=== PATIENT | female | born 1950 | race Caucasian/White ===

== ENCOUNTER 2020-05-25 11:06 | Emergency (ER) | payer MEDICARE, MEDICAID ==
--- NOTE | 2020-05-25 11:26 | EDM.PDOC ---
ED HPI GENERAL MEDICAL PROBLEM - General Chief Complaint: Respiratory Problem Stated Complaint: COVID POSITIVE Time Seen by Provider: 05/25/20 11:10 Source of Information: Reports: Patient, RN Notes Reviewed History Limitations: Reports: No Limitations - History of Present Illness INITIAL COMMENTS - FREE TEXT/NARRATIVE: Chelsey is an alert 70 year old female staying at [facility]. She was having SOB, is COVID19 +, has dialysis. Her primary provider Dr. Salas arranged for her transfer via ambulance to [facility] COVID unit directed admit. Per EMS they did not have transfer paper work and brought her to our emergency room as we are the closest facility. EMS dropped off patient, left emergency room. [facility] contacted, patient acceptance per Dr. Sifuentes. Patient resting on ER stretcher, O2 at 2L per nasal cannula, vital signs stable. - Related Data Allergies Allergy/AdvReac Type Severity Reaction Status Date / Time No Known Allergies Allergy Verified 08/31/14 10:23 Home Meds: Home Meds Insulin Aspart [NovoLOG] 0 - 5 units SUBCUT TID 06/22/13 [History] Insulin Detemir [Levemir] 5 units SUBCUT BEDTIME 06/22/13 [History] Aspirin [Ecotrin EC] 81 mg PO DAILY 08/02/14 [History] Fluticasone/Salmeterol [Advair 250-50] 1 puff IH BID 08/02/14 [History] Multivitamin [Multi-Vitamin Daily] 1 each PO DAILY 08/02/14 [History] Sevelamer Carbonate [Renvela] 800 mg PO TIDMEALS 08/02/14 [History] atorvaSTATin Calcium [Atorvastatin Calcium] 20 mg PO DAILY 08/31/14 [History] Ondansetron [Zofran ODT] 4 mg PO Q4H PRN 09/10/14 [History] oxyCODONE 5 units PO Q4H PRN 09/10/14 [History] polyethylene glycoL 3350 [MiraLAX] 17 gm PO DAILY 09/10/14 [History] Past Medical History Respiratory History: Reports: Other (See Below) Other Respiratory History: know covid - Past Surgical History Female Surgical History: Reports: Other (See Below) Other Female Surgeries/Procedures: renal failure with dialysis ED ROS GENERAL - Review of Systems Review Of Systems: See Below Constitutional: Reports: Malaise, Weakness HEENT: Reports: No Symptoms Respiratory: Reports: Shortness of Breath, Other (Use of oxygen, COVID19+) Cardiovascular: Reports: No Symptoms Endocrine: Reports: No Symptoms GI/Abdominal: Reports: No Symptoms : Reports: No Symptoms Musculoskeletal: Reports: Other (weakness) Skin: Reports: No Symptoms Neurological: Reports: No Symptoms Psychiatric: Reports: No Symptoms Hematologic/Lymphatic: Reports: No Symptoms Immunologic: Reports: No Symptoms ED EXAM, GENERAL - Physical Exam Exam: See Below Exam Limited By: No Limitations General Appearance: Alert, Mild Distress (Use of oxygen to maintains sats above 92%) Head: Atraumatic, Normocephalic Respiratory/Chest: Chest Non-Tender, Decreased Breath Sounds, Accessory Muscle Use. No: Rales, Rhonchi, Wheezing, Retractions Skin Exam: Warm, Dry, Intact, Normal Color, No Rash Course - Vital Signs Last Recorded V/S: Last Vital Signs Temp 37.1 C 05/25/20 11:46 Pulse 95 05/25/20 11:46 Resp 14 05/25/20 11:46 BP 139/70 05/25/20 11:46 Pulse Ox 99 05/25/20 11:46 - Orders/Labs/Meds Labs: Laboratory Tests 05/25/20 Range/Units 12:49 POC Glucose 80 (74-106) MG/DL - Re-Assessments/Exams Free Text/Narrative Re-Assessment/Exam: 05/25/20 12:51 EMS arrives to transport patient to [facility]. Patient stable Blood glucose 80, orange juice and applesauce provided. Patient transfer to [facility]. Departure - Departure Time of Disposition: 11:11 Disposition: DC/Tfer to Acute Hospital 02 Condition: Fair Clinical Impression: Coronavirus infection, CKD (chronic kidney disease) stage 5, GFR less than 15 ml/min - Discharge Information Referrals: PCP,None [Primary Care Provider] - Forms: ED Department Discharge Sepsis Event Note (ED) - Focused Exam Vital Signs: Vital Signs Temp Pulse Resp BP Pulse Ox 05/25/20 11:46 37.1 C 95 14 139/70 99 - Assessment/Plan Assessment:: Coronavirus infection, CKD (chronic kidney disease) stage 5, GFR less than 15 ml/min Transfer to [facility] COVID unit arranged per Dr. Salas, paperwork not completed. [facility] contacted, Dr. Sifuentes accepts patient for transfer. Plan: Transfer to [facility] COVID unit arranged per Dr. Salas, paperwork not completed. [facility] contacted, Dr. Sifuentes accepts patient for transfer.
[2020-05-25 11:47] VITALS: BP 139/70; PULSE 95
== END 2020-05-25 13:00 ==
LOC: JP.ED 11:06
DX: U07.1 COVID-19 (principal); N18.5 Chronic kidney disease, stage 5; Z99.2 Dependence on renal dialysis
CPT/HCPCS: 82962; 99285

== ENCOUNTER 2021-04-19 23:35 | Emergency (ER) | payer MEDICARE, MEDICAID ==
[2021-04-19] MEDS ORDERED: Lidocaine 1% with EPINEPHrine 1:100,000 50 ML MDV INFILT STA (23:51)
[2021-04-19 23:59] VITALS: BP 110/69; PULSE 98
--- NOTE | 2021-04-20 01:04 | EDM.PDOC ---
ED HPI GENERAL MEDICAL PROBLEM - General Chief Complaint: Upper Extremity Injury/Pain Stated Complaint: FELL Time Seen by Provider: 04/19/21 23:50 Source of Information: Reports: Patient, EMS, [facility] Records History Limitations: Reports: Altered Mental Status, Other (Patient is having an extremely difficult time localizing her pain for us) - History of Present Illness INITIAL COMMENTS - FREE TEXT/NARRATIVE: 71-year-old female, nonambulatory, fell out of her chair. She has a very shallow abrasion on her left knee, complaining of bilateral hand pain, and has a bleeding lesion on her right forehead. No loss of consciousness but she is very anxious and agitated. There is a pressure dressing on her forehead. Onset: Sudden Duration: Hour(s): (Fell within the last hour) Location: Reports: Head, Upper Extremity, Left, Upper Extremity, Right, Lower Extremity, Left Quality: Reports: Sharp, Stabbing Associated Symptoms: Reports: Confusion, Other (Her chief complaint seems to be left hand pain and muscle spasm in the hand). Denies: Cough, Headaches (Denies a headache), Shortness of Breath Bilateral Hand Pain Score (Numeric/FACES): 10 - Related Data Allergies Allergy/AdvReac Type Severity Reaction Status Date / Time No Known Allergies Allergy Verified 04/19/21 23:46 Home Meds: Home Meds Insulin Aspart [NovoLOG] 2 units SUBCUT TID 06/22/13 [History] Insulin Detemir [Levemir] 8 units SUBCUT BEDTIME 06/22/13 [History] Aspirin [Ecotrin EC] 81 mg PO DAILY 08/02/14 [History] Fluticasone/Salmeterol [Advair 250-50] 1 puff IH BID 08/02/14 [History] Sevelamer Carbonate [Renvela] 800 mg PO TIDMEALS 08/02/14 [History] Amino Acids [Amino Acid] 1 tab PO ASDIRECTED 04/19/21 [History] Cetirizine [ZyrTEC] 1 tab PO DAILY 04/19/21 [History] Cholecalciferol (Vitamin D3) [Vitamin D3] 5,000 intunit PO DAILY 04/19/21 [History] Famotidine 1 tab PO DAILY 04/19/21 [History] Lidocaine/Prilocaine [EMLA Crm] 1 dose TOP ASDIRECTED 04/19/21 [History] Simvastatin [Zocor] 1 tab PO DAILY 04/19/21 [History] Triamcinolone Acetonide [Nasacort] 2 spray IN DAILY PRN 04/19/21 [History] Past Medical History HEENT History: Reports: Macular Degeneration Cardiovascular History: Reports: CAD, High Cholesterol Respiratory History: Reports: COPD, Other (See Below) Other Respiratory History: oxygen 2L at night Gastrointestinal History: Reports: GERD, Other (See Below) Other Gastrointestinal History: gastoparesis Genitourinary History: Reports: Acute Renal Failure, Chronic Renal Insuffiency, Dialysis Musculoskeletal History: Reports: Arthritis Endocrine/Metabolic History: Reports: Diabetes, Type II Hematologic History: Reports: Anemia - Infectious Disease History Infectious Disease History: Reports: Measles, Novel Coronavirus - Past Surgical History GI Surgical History: Reports: Colon, Other (See Below) Female Surgical History: Reports: Other (See Below) Other Female Surgeries/Procedures: renal failure with dialysis Social & Family History - Family History Family Medical History: No Pertinent Family History - Tobacco Use Tobacco Use Status *Q: Never Tobacco User - Caffeine Use Caffeine Use: Reports: None - Recreational Drug Use Recreational Drug Use: No Review of Systems - Review of Systems Review Of Systems: See Below Constitutional: Denies: Fever Eyes: Denies: Vision Change Mouth/Throat: Reports: No Symptoms Respiratory: Reports: No Symptoms Cardiovascular: Reports: No Symptoms Skin: Reports: Bruising (Bruising and hematomas are forming on her forehead and she has a bleeding lesion in her right forehead. No significant bruising of the upper extremities. She has a dialysis site with a pressure dressing on the left upper arm.) Neurological: Reports: Confusion. Denies: Headache Psychiatric: Reports: Anxiety ED EXAM, GENERAL - Physical Exam Exam: See Below Exam Limited By: No Limitations General Appearance: Alert, Anxious, Mild Distress, Other (Patient having trouble sitting still because of discomfort in her hands) Eye Exam: Bilateral Eye: Other (Chronically dilated left pupil) Throat/Mouth: Other (1.5 cm transverse laceration on the right forehead) Head: Other (Patient is a 2 cm laceration to the right forehead) Neck: Non-Tender Respiratory/Chest: Lungs Clear Cardiovascular: Regular Rate, Rhythm GI/Abdominal: Soft, Non-Tender Extremities: Other (There is a pressure dressing around the upper arm on the left side over her dialysis site. She is complaining of severe pain in her left hand although there is no objective signs of injury. She has some ulnar deviation of the MP joints of the right hand.) Neurological: Alert, No Motor/Sensory Deficits Psychiatric: Anxious Skin Exam: Warm, Dry Course - Vital Signs Last Recorded V/S: Last Vital Signs Temp 96.3 F L 04/19/21 23:58 Pulse 98 04/19/21 23:58 Resp 20 04/19/21 23:58 BP 110/69 04/19/21 23:58 Pulse Ox 95 04/19/21 23:58 - Orders/Labs/Meds Meds: Medications Discontinued Medications Generic Name Dose Route Start Last Admin Trade Name Angela PRN Reason Stop Dose Admin Acetaminophen 650 mg 04/20/21 01:37 04/20/21 01:40 Acetaminophen 325 Mg Tab PO 04/20/21 01:38 650 mg NOW ONE Administration Lidocaine/Epinephrine 30 ml 04/19/21 23:51 04/19/21 23:57 Lidocaine 1% With Epinephrine 1:100,000 50 Ml Mdv INFILT 04/19/21 23:52 30 ml NOW STA Administration - Re-Assessments/Exams Free Text/Narrative Re-Assessment/Exam: 04/20/21 01:39 IMPRESSION: 1. Small amount of post-traumatic bilateral inferior frontal sulcal subarachnoid hemorrhage, seen best in series 5 images 13, 15, 16, 18 and 21. 2. Prominent right frontal subgaleal soft tissue swelling without associated fracture. 3. Moderate microangiopathic changes and diffuse parenchymal volume loss. 04/20/21 01:56 The laceration on the forehead was anesthetized with 1% lidocaine with epinephrine and four 4-0 Ethilon sutures were used to close the wound. A pressure dressing was reapplied and these can be removed in 5 days. X-ray of the left hand was obtained which showed no fracture. She did calm down. CT scan of the head was done and showed the above findings. These will be relayed to Dr. Salas in the morning, a follow-up CT scan can be done as an outpatient in the next day or two. Departure - Departure Time of Disposition: 02:07 Disposition: DC/Tfer to [facility] Clinical Impression: Forehead laceration Qualifiers: Encounter type: initial encounter Qualified Code(s): S01.81XA - Laceration without foreign body of other part of head, initial encounter Scalp contusion Qualifiers: Encounter type: initial encounter Qualified Code(s): S00.03XA - Contusion of scalp, initial encounter Sprain of hand, left Qualifiers: Encounter type: initial encounter Qualified Code(s): S63.92XA - Sprain of unspecified part of left wrist and hand, initial encounter Abrasion of knee, left Qualifiers: Encounter type: initial encounter Qualified Code(s): S80.212A - Abrasion, left knee, initial encounter Subarachnoid hemorrhage following injury Qualifiers: Encounter type: initial encounter Loss of consciousness presence/duration: without LOC Qualified Code(s): S06.6X0A - Traumatic subarachnoid hemorrhage without loss of consciousness, initial encounter - Discharge Information Instructions: Laceration Care, Adult, [id number] Referrals: Enrico Salas Sr, MD [Primary Care Provider] - Forms: ED Department Discharge Care Plan Goals: Keep pressure dressings on the laceration on the forehead for the next 12 hours, ice to sore areas may be helpful. The CT findings and treatment will be discussed with her primary provider Dr. Salas in the morning. Follow-up will be arranged by him. Sepsis Event Note (ED) - Evaluation Sepsis Screening Result: No Definite Risk - Focused Exam Vital Signs: Vital Signs Temp Pulse Resp BP Pulse Ox 04/19/21 23:58 96.3 F L 98 20 110/69 95
--- NOTE | 2021-04-20 01:31 | CRLCT ---
For Patients: As a result of the Cures Act, medical imaging exams and procedure reports are released immediately into your electronic medical record. You may view this report before your referring provider. If you have questions, please contact your health care provider. CT HEAD DATE: 04/20/2021 CLINICAL HISTORY: Patient with fall. TECHNIQUE: Standard CT scanning of the head was performed. COMPARISON: None. FINDINGS: There is right frontal subgaleal soft tissue swelling. There is a small amount of post-traumatic bilateral inferior frontal sulcal subarachnoid hemorrhage, seen best in series 5 images 13, 15, 16, 18 and 21. There is no territorial infarction. There are moderate microangiopathic changes. There is diffuse parenchymal volume loss. There is no mass effect or midline shift. The calvarium is unremarkable. The orbits are unremarkable. The paranasal sinuses are unremarkable. The mastoid air cells are unremarkable. IMPRESSION: 1. Small amount of post-traumatic bilateral inferior frontal sulcal subarachnoid hemorrhage, seen best in series 5 images 13, 15, 16, 18 and 21. 2. Prominent right frontal subgaleal soft tissue swelling without associated fracture. 3. Moderate microangiopathic changes and diffuse parenchymal volume loss. Findings were discussed with Dr. Jackson at 1:30 AM. Please note that all CT scans at this facility use dose modulation, iterative reconstruction, and/or weight-based dosing when appropriate to reduce radiation dose to as low as reasonably achievable. Dictated by: Prasanth Hopkins MD @ 04/20/2021 01:30:28 (Electronically Signed)
[2021-04-20] MEDS ORDERED: Acetaminophen 325 MG Tab PO ONE (01:37)
--- NOTE | 2021-04-20 03:35 | CRLCR ---
For Patients: As a result of the Century Cures Act, medical imaging exams and procedure reports are released immediately into your electronic medical record. You may view this report before your referring provider. If you have questions, please contact your health care provider. Indication: Fall Technique: One-view Comparison: None Findings: Only a single view of the left hand could be obtained secondary to patient pain. There is diffuse osteopenia without definite evidence of acute fracture. Osteoarthritis is present at the 2nd through 5th distal interphalangeal joints as well as likely the 5th proximal interphalangeal joint. Osteoarthritis at the interphalangeal joint of the thumb. Lateral carpal osteoarthritis. No gross dislocation on this single view. Atherosclerotic calcification with likely chondrocalcinosis at the level of the wrist. Dictated by Jame Moss MD @ 04/20/2021 3:33:29 AM (Electronically Signed)
== END 2021-04-20 02:16 ==
LOC: JP.ED 23:35
DX: S06.6X0A Traumatic subarachnoid hemorrhage without loss of consciousness, initial encounter (principal); S01.81XA Laceration without foreign body of other part of head, initial encounter; S63.92XA Sprain of unspecified part of left wrist and hand, initial encounter; S80.212A Abrasion, left knee, initial encounter; I10 Essential (primary) hypertension; I25.10 Atherosclerotic heart disease of native coronary artery without angina pectoris; J44.9 Chronic obstructive pulmonary disease, unspecified; E11.9 Type 2 diabetes mellitus without complications; Z79.4 Long term (current) use of insulin; Z79.899 Other long term (current) drug therapy; Z86.16 Personal history of COVID-19; W07.XXXA Fall from chair, initial encounter
CPT/HCPCS: 12013; 70450; 73120; 99284; A9270

== ENCOUNTER 2021-05-16 07:34 | Emergency (ER) | payer MEDICARE, MEDICAID ==
--- NOTE | 2021-05-16 08:10 | EDM.PDOC ---
ED HPI GENERAL MEDICAL PROBLEM - General Chief Complaint: General Stated Complaint: FALL Time Seen by Provider: 05/16/21 08:03 Source of Information: Reports: Patient, Provider, RN Notes Reviewed History Limitations: Reports: Physical Impairment - History of Present Illness INITIAL COMMENTS - FREE TEXT/NARRATIVE: 71-year-old female presents emergency department today via EMS services she is a resident of a assisted recently had a fall with a head injury producing a subarachnoid hemorrhage this is approximately couple weeks ago repeat CT scan showed no change in size with some resolution. She was found this morning at the assisted on the ground unwitnessed event had 1 episode of emesis she has been in decline memory issues so difficult to obtain history from her. I did discuss the case with her primary care provider he has ordered an MRI for this this morning. - Related Data Allergies Allergy/AdvReac Type Severity Reaction Status Date / Time No Known Allergies Allergy Verified 05/16/21 08:08 Home Meds: Home Meds Insulin Aspart [NovoLOG] 2 units SUBCUT TID 06/22/13 [History] Insulin Detemir [Levemir] 8 units SUBCUT BEDTIME 06/22/13 [History] Aspirin [Ecotrin EC] 81 mg PO DAILY 08/02/14 [History] Fluticasone/Salmeterol [Advair 250-50] 1 puff IH BID 08/02/14 [History] Cetirizine [ZyrTEC] 1 tab PO DAILY 04/19/21 [History] Cholecalciferol (Vitamin D3) [Vitamin D3] 5,000 intunit PO DAILY 04/19/21 [History] Famotidine 1 tab PO DAILY 04/19/21 [History] Lidocaine/Prilocaine [EMLA Crm] 1 dose TOP ASDIRECTED 04/19/21 [History] Simvastatin [Zocor] 1 tab PO DAILY 04/19/21 [History] Triamcinolone Acetonide [Nasacort] 2 spray IN DAILY PRN 04/19/21 [History] Sevelamer Carbonate [Renvela] 2 tab PO TID 05/16/21 [History] Past Medical History HEENT History: Reports: Macular Degeneration Cardiovascular History: Reports: CAD, High Cholesterol Respiratory History: Reports: COPD, Other (See Below) Other Respiratory History: oxygen 2L at night Gastrointestinal History: Reports: GERD, Other (See Below) Other Gastrointestinal History: gastoparesis Genitourinary History: Reports: Acute Renal Failure, Chronic Renal Insuffiency, Dialysis Musculoskeletal History: Reports: Arthritis Endocrine/Metabolic History: Reports: Diabetes, Type II Hematologic History: Reports: Anemia - Infectious Disease History Infectious Disease History: Reports: Measles, Novel Coronavirus - Past Surgical History GI Surgical History: Reports: Colon, Other (See Below) Female Surgical History: Reports: Other (See Below) Other Female Surgeries/Procedures: renal failure with dialysis Social & Family History - Family History Family Medical History: No Pertinent Family History - Tobacco Use Tobacco Use Status *Q: Unknown Ever Used Tobacco - Caffeine Use Caffeine Use: Reports: None ED ROS GENERAL - Review of Systems Review Of Systems: Unable To Obtain Reason Not Obtained: Unwitnessed event memory decline difficult to obtain history ED EXAM, GENERAL - Physical Exam Exam: See Below Exam Limited By: Physical Impairment General Appearance: Alert, Mild Distress Eye Exam: Bilateral Eye: EOMI, PERRL, Other (Bilateral discharge) Throat/Mouth: Normal Inspection, Normal Lips, Normal Teeth, Normal Gums, Normal Oropharynx, Normal Voice, No Airway Compromise Head: Atraumatic, Normocephalic Neck: Normal Inspection, Supple, Non-Tender, Full Range of Motion Respiratory/Chest: No Respiratory Distress, Lungs Clear, Normal Breath Sounds, No Accessory Muscle Use, Chest Non-Tender Cardiovascular: No Murmur, Tachycardia GI/Abdominal: Soft, Non-Tender Extremities: Normal Inspection, Non-Tender, No Pedal Edema Course - Vital Signs Last Recorded V/S: Last Vital Signs Temp 97.2 F 05/16/21 08:07 Pulse 110 H 05/16/21 10:12 Resp 20 05/16/21 08:53 BP 171/77 H 05/16/21 10:12 Pulse Ox 98 05/16/21 10:12 Departure - Departure Time of Disposition: 12:33 Disposition: DC/Tfer to [facility] Condition: Poor Clinical Impression: Head injury Qualifiers: Encounter type: initial encounter Qualified Code(s): S09.90XA - Unspecified injury of head, initial encounter - Discharge Information Instructions: Head Injury, Adult Referrals: PCP,None [Primary Care Provider] - Forms: ED Department Discharge Additional Instructions: Continue with your regular medications, Dr. Salas will follow up with you at the assisted call return to the emergency department worsening of symptoms Sepsis Event Note (ED) - Focused Exam Vital Signs: Vital Signs Temp Pulse Resp BP Pulse Ox 05/16/21 10:12 110 H 171/77 H 98 05/16/21 09:43 110 H 170/69 H 98 05/16/21 09:13 112 H 182/74 H 97 05/16/21 08:53 109 H 20 172/84 H 97 05/16/21 08:07 97.2 F 114 H 20 181/78 H 98 05/16/21 08:05 114 H 20 181/78 H 98 05/16/21 07:57 97.2 F 118 H 20 173/99 H 77 L - Assessment/Plan Plan: Assessment Acuity = acute Site and laterality = possible head injury Etiology = unknown Manifestations = none Location of injury = Home Lab values = CT scan of the head was negative for any acute process, could not do an MRI because she was too agitated to lay still Plan Call discussed case with her primary care physician Dr. Salas at 1230 he agreed we will send her back to the assisted he will continue to provide care and monitor. This note was dictated using [employer] voice recognition software please call with any questions on syntax or grammar.
--- NOTE | 2021-05-16 09:40 | CT ---
Head wo Cont CLINICAL HISTORY: Fall, history of subarachnoid hemorrhage COMPARISON: 04/21/2021, 04/20/2021 TECHNIQUE: Transverse scans were obtained from the base of the skull through the vertex without IV contrast on a multislice, multidetector CT scanner. Auto dosage reduction and iterative reconstruction techniques employed. FINDINGS: Patient had to initially be rescanned due to motion artifact. There is some increased density in the frontal gyri bilaterally best seen on series 8 images #37 through #43. This is thought to be artifact There is no mass effect, or extraaxial collection. The basal cisterns and sulci over the convexities are prominent. The ventricles are normal for age. IMPRESSION: Limited study due to patient motion despite additional imaging No definite hemorrhage or mass effect Vague increased density over the gyri of the frontal lobes bilaterally. This is felt to be artifact Age-related atrophy
[2021-05-16 10:18] VITALS: BP 171/77; PULSE 110
== END 2021-05-16 15:52 ==
LOC: JP.ED 07:34
DX: S09.90XA Unspecified injury of head, initial encounter (principal); I25.10 Atherosclerotic heart disease of native coronary artery without angina pectoris; E78.00 Pure hypercholesterolemia, unspecified; J44.9 Chronic obstructive pulmonary disease, unspecified; E11.22 Type 2 diabetes mellitus with diabetic chronic kidney disease; Z99.2 Dependence on renal dialysis; Z79.4 Long term (current) use of insulin; Z79.82 Long term (current) use of aspirin; W18.39XA Other fall on same level, initial encounter; Y92.129 Unspecified place in nursing home as the place of occurrence of the external cause
CPT/HCPCS: 70450; 70450-26; 99284-25